=== PATIENT | female | born 1995 | race Caucasian/White ===

== ENCOUNTER 2022-12-02 16:34 | Inpatient (IN) | payer BC, MEDICAID ==
[~2022-12-02] VITALS: Ht 154.9 cm; Wt 66.4 kg
[2022-12-02] MEDS ORDERED: HALOPERIDOL 5 MG TABLET PO PRN (17:45)
[2022-12-03 00:05] VITALS: BP 133/90; PULSE 91; RESP 18; TEMP 98
[2022-12-03 07:44] LABS: BASOPHILS % (AUTO) 0.9 % (0.0-2.0); HEMATOCRIT 41.1 % (36-46); LYMPHOCYTES # (AUTO) 1.7 K/uL (1.0-4.8); LYMPHOCYTES % (AUTO) 28.8 % (22.0-44.0); MEAN CORPUSCULAR VOLUME 91 fL (80-100); MONOCYTES # (AUTO) 0.5 K/uL (0.1-1.0); MONOCYTES % (AUTO) 8.9 % (2.0-9.0); NEUTROPHILS # (AUTO) 3.6 K/uL (1.8-7.7); NEUTROPHILS % (AUTO) 59.4 % (40.0-70.0); PLATELET COUNT (AUTO) 483 K/uL (150-450); RED CELL DISTRIBUTION WIDTH 13.3 % (11.5-14.5)
[2022-12-03 08:26] VITALS: BP 120/70; PULSE 86; RESP 16; TEMP 98; O2SAT 98
[2022-12-03 08:30] LABS: CHOL/HDL RATIO 4.7 (3.9-5.7); CHOLESTEROL 194 mg/dL (131-200); FREE T4 (FREE THYROXINE) 1.51 ng/dL (0.76-1.46); HCG,QUANTITATIVE < 1 mIU/mL (0-6); HDL CHOLESTEROL 41 mg/dL (40-60); LDL CHOL (CALC.) 139 mg/dL (0-130); THYROID STIMULATING HORMONE 1.01 uIU/mL (0.36-3.74); TRIGLYCERIDES 70 mg/dL (15-150)
[2022-12-03 09:15] LABS: HEMOGLOBIN A1C 5.2 % (3.8-5.6)
[2022-12-03 09:22] LABS: ALANINE AMINOTRANSFERASE 22 U/L (12-78); ALBUMIN 4.2 g/dL (3.4-5.0); ALKALINE PHOSPHATASE 68 U/L (46-116); ANION GAP 12 mmol/L (8-16); ASPARTATE AMINOTRANSFERASE 23 U/L (15-37); BILIRUBIN,TOTAL 0.4 mg/dL (0.1-1.0); CALCIUM, TOTAL 10.1 mg/dL (8.8-10.5); CARBON DIOXIDE 26 mmol/L (22-29); CHLORIDE 103 mmol/L (98-107); CREATININE 0.76 mg/dL (0.60-1.30); GLOMERULAR FILTR. RATE CALC > 60 mL/min (>60); GLUCOSE,RANDOM 92 mg/dL (70-110); POTASSIUM 4.8 mmol/L (3.5-5.1); SODIUM SERUM 141 mmol/L (136-145); TOTAL PROTEIN, SERUM 7.8 g/dL (6.4-8.2)
[2022-12-03] MEDS ORDERED: ALBUTEROL SULFATE HFA 90 MCG/PUFF 8 GM INHALER IH PRN (12:45)
[2022-12-03] MEDS ORDERED: MAGNESIUM HYDROXIDE SUSPENSION 30 ML UDCUP PO PRN (12:45)
[2022-12-03] MEDS ORDERED: ONDANSETRON HCL 4 MG TABLET PO PRN (12:45)
[2022-12-03] MEDS ORDERED: CloNIDine HCL 0.1 MG TABLET PO PRN (12:45)
[2022-12-03] MEDS ORDERED: IBUPROFEN 400 MG TABLET PO PRN (12:45)
[2022-12-03] MEDS ORDERED: NICOTINE 14 MG/24 HOUR PATCH TD PRN (12:45)
[2022-12-03] MEDS ORDERED: DOCUSATE SODIUM 100 MG CAPSULE PO PRN (12:45)
[2022-12-03] MEDS ORDERED: MAG HYDROX/AL HYDROX/SIMETH ES 30 ML SUSPENSION UDCUP PO PRN (12:45)
[2022-12-03] MEDS ORDERED: PETROLATUM,WHITE 28 GM JELLY TP PRN (12:45)
[2022-12-03] MEDS ORDERED: LOPERAMIDE HCL 2 MG CAPSULE PO PRN (12:45)
[2022-12-03] MEDS ORDERED: ACETAMINOPHEN 325 MG TABLET PO PRN (12:45)
[2022-12-03] MEDS ORDERED: GuaiFENesin/D-METHORPHAN [SUGAR-FREE] 200-20MG/10 ML SYRUP UDCUP PO PRN (12:45)
[2022-12-03 20:46] VITALS: BP 136/89; PULSE 87; RESP 17; TEMP 98.2; O2SAT 97
[2022-12-03] MEDS: LURASIDONE HCL 40 MG TABLET PO SCH (22:18)
[2022-12-04] MEDS: LORazepam 2 MG TABLET PO PRN ×2 (02:25→20:38)
[2022-12-04] MEDS: ZOLPIDEM TARTRATE 10 MG TABLET PO PRN ×2 (02:25→20:38)
[2022-12-04 02:46] VITALS: BP 136/94; PULSE 82; RESP 18; TEMP 98.3; O2SAT 99
[2022-12-04 08:34] LABS: ALANINE AMINOTRANSFERASE 23 U/L (12-78); ALBUMIN 4.1 g/dL (3.4-5.0); ALKALINE PHOSPHATASE 65 U/L (46-116); ANION GAP 11 mmol/L (8-16); ASPARTATE AMINOTRANSFERASE 14 U/L (15-37); BILIRUBIN,TOTAL 0.4 mg/dL (0.1-1.0); CALCIUM, TOTAL 9.5 mg/dL (8.8-10.5); CARBON DIOXIDE 27 mmol/L (22-29); CHLORIDE 101 mmol/L (98-107); GLOMERULAR FILTR. RATE CALC > 60 mL/min (>60); GLUCOSE,RANDOM 84 mg/dL (70-110); POTASSIUM 3.7 mmol/L (3.5-5.1); SODIUM SERUM 139 mmol/L (136-145); THYROID STIMULATING HORMONE 2.75 uIU/mL (0.36-3.74); TOTAL PROTEIN, SERUM 7.7 g/dL (6.4-8.2)
[2022-12-04 08:41] VITALS: BP 126/82; PULSE 83; RESP 16; TEMP 98; O2SAT 98
[2022-12-04] MEDS: LURASIDONE HCL 40 MG TABLET PO SCH (20:38)
[2022-12-04 23:24] VITALS: RESP 18; TEMP 98
[2022-12-05 08:40] VITALS: BP 140/89; PULSE 95; RESP 16; TEMP 98.2; O2SAT 99
[2022-12-05] MEDS ORDERED: LURA40TA2 PO (12:10)
[2022-12-05] MEDS ORDERED: LURA40TA4 PO (12:16)
== END 2022-12-05 15:45 | disposition home or self-care (01) | DRG 885 ==
LOC: B3A 17:35
PROVIDERS: ADMIT Psychiatry & Neurology Child & Adolescent Psychiatry; ATTEND Psychiatry & Neurology Child & Adolescent Psychiatry
DX: F31.2 Bipolar disorder, current episode manic severe with psychotic features (principal); D75.839 Thrombocytosis, unspecified; F41.9 Anxiety disorder, unspecified; G47.00 Insomnia, unspecified
CPT/HCPCS: 80053; 80061; 83036; 84439; 84443; 84702; 85025